=== PATIENT | male | born 1935 | race Caucasian/White ===

== ENCOUNTER 2016-11-10 12:13 | Inpatient (IN) ==
[2016-11-10] MEDS ORDERED: SODIUM BICARBONATE 2.4 MEQ/5 ML VIAL ONE (12:20)
[2016-11-10] MEDS ORDERED: MIDAZOLAM 2 MG/2 ML VIAL ONE ×2 (12:44→13:23)
[2016-11-10] MEDS ORDERED: fentaNYL 100 MCG/2 ML VIAL ONE ×2 (12:44→13:23)
[2016-11-10] MEDS ORDERED: BIVALIRUDIN 250 MG VIAL IV ONE (12:49)
[2016-11-10] MEDS ORDERED: HEPARIN/NACL 0.9% 2 UNITS/ML 500 ML IV ONE (13:16)
[2016-11-10] MEDS ORDERED: HEPARIN/NACL 0.9% 2 UNITS/ML 1,000 ML IV ONE (13:44)
[2016-11-10] MEDS ORDERED: LIDOCAINE 1% 20 ML VIAL ONE (13:44)
[2016-11-10] MEDS ORDERED: TICAGRELOR 90 MG TABLET ONE (14:07)
[2016-11-10] MEDS ORDERED: ACETAMINOPHEN 325 MG TABLET PO PRN (14:32)
[2016-11-10] MEDS ORDERED: ACETAMINOPHEN/CODEINE 300-30 MG TABLET PO PRN (14:32)
[2016-11-10] MEDS ORDERED: ZALEPLON 5 MG CAPSULE PO PRN (14:32)
[2016-11-10] MEDS ORDERED: ONDANSETRON 4 MG/2 ML VIAL IV PRN (14:32)
[2016-11-10] MEDS ORDERED: SODIUM CHLORIDE 0.45% 1,000 ML IV SCH (15:00)
--- NOTE | 2016-11-10 15:08 | EKG Report ---
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
[2016-11-10 15:16] LABS: Basophils % 0.5 % (0.0-0.8); Eosinophils # 0.3 10*3/uL (0.0-0.87); Eosinophils % 4.1 % (0.00-10.9); Hematocrit 40.1 VOL% (42.0-52.0); Hemoglobin 14.1 GM/DL (14.0-18.0); Immature Granulocytes % 0.5 %; Immature Granulocytes Absolute 0.04 #; Lymphocytes # 0.9 10*3/uL (1.4-4.0); Lymphocytes % 10.7 % (21.2-54.2); Mean Corpuscular HGB Conc 35.2 GM/DL (32-36); Mean Corpuscular Hemoglobin 32 PG (27-34); Mean Corpuscular Volume 90.9 FL (87-102); Mean Platelet Volume 9.6 FL (9.6-12.0); Monocytes # 0.4 10*3/uL (0.11-0.8); Monocytes % 5.5 % (1.7-12.7); Neutrophils # 6.3 10*3/uL (1.4-7.4); Neutrophils % 78.7 % (38.7-73.9); Platelet Count 124 T/CUMM (130-400); Red Blood Count 4.41 MC/CUMM (3.8-5.5); Red Cell Distribution Width 12.5 % (9.3-17.3)
[2016-11-10] MEDS: MORPHINE 2 MG/1 ML SYRINGE IV PRN ×2 (15:30→18:45)
[2016-11-10] MEDS ORDERED: ALUMINUM/MAGNES/SIMETH MAX STR 30 ML UDCUP PO PRN (15:41)
[2016-11-10 15:43] LABS: Calcium 8.1 MG/DL (8.5-10.1); Osmolality,Calculated 280.5 MOS/KG (273-304); Potassium 4.2 MMOL/L (3.5-5.1)
[2016-11-10 15:45] LABS: CKMB % 8.2 %
[2016-11-10 15:50] LABS: Troponin I Only 4.65 NG/ML (0.00-0.045)
--- NOTE | 2016-11-10 15:54 | Cardiology History & Physical ---
Assessment and Plan (1) Acute lateral myocardial infarction Status: Acute Current Visit: Yes (2) Coronary artery disease Status: Chronic Current Visit: Yes (3) Hypertension Status: Chronic Current Visit: Yes (4) Hyperlipidemia Status: Chronic Current Visit: Yes History of Present Illness Chief complaint: epigastric pain History of present illness: Central Lab Technician: Dr. Cárdenas. Mr. Whitfield is a 81 year old male with a history of coronary artery bypass grafting in approximately 1995 (EVANS to LAD, SVG to D1, SVG to RCA), followed by PCI of an intermediate ramus vessel shortly thereafter. He has not had any recent heart catheterization. Comorbidities include hypertension, hyperlipidemia. He has a history of colon cancer diagnosed 2005 status post resection and felt to be in remission. He was brought to the hospital as an activated STEMI from [facility]. He awoke at approximately 8 AM with some epigastric discomfort. He has some chronic constipation issues related to his colonic resection and he thinks that these may be related. He did not really have any associated symptoms, no clear triggers or alleviators. He denied any chest pain, shortness of breath, orthopnea, edema. He had no antecedent exertional chest discomfort or change in his exercise tolerance. He has good medication and dietary compliance. Of note, on chart review he complained of epigastric discomfort prior to the PCI of his ramus. He was brought directly to the Application Packaging Consultant and interviewed on the Application Packaging Consultant table preoperatively and intraoperatively. His chart was reviewed preoperatively, at least what was available in the computer. The staff continue to search for additional information during the procedure. The supplemental information was applied to decision-making as described below. Initially he was unsure about proceeding with cardiac catheterization but eventually agreed to proceed given the information about his condition that I provided. Please see the operative report for full details. The patient has complex anatomy which included 3 patent grafts, but 100% occluded mid LAD distal to the graft insertion, 95% ramus (or obtuse marginal artery) proximal to the previously placed stent, and suspected 100% occlusion of the circumflex proper. It was suspected that the circumflex occlusion was likely the culprit vessel. the circumflex was faintly identified with some ghost filling through some very distal collaterals. The origin of this vessel could not be identified readily. I attempted to search the patent vessel and attempts to enter the circumflex, and overall these attempts were unsuccessful and we could never enter the circumflex vessel. Initially chronicity of the LAD was unknown, and the wire was inserted to the LAD in an attempt to open up the LAD. However, intraoperatively we were able to obtain some prior cath reports describing this vessel is occluded after the graft insertion with a failed previous attempt at PCI to this vessel. Additionally, the apex appeared to be akinetic and this again was felt to be a chronic occlusion. The patient did have persistent threats to further occlusion of the lateral territory through the ramus or marginal branch, therefore PCI of this vessel was performed. Of note, the patient was recently seen in the emergency room for Dysfunction of his right thumb and first finger. He was unable to use these fingers acutely and eventually saw his primary care physician and neurologist for concerns of stroke. He has recovered some function in his fingers at this point. Impression: 1. Acute lateral ST elevation myocardial infarction-please see op report for full details. The failed attempt at PCI of the circumflex and LAD, but successful PCI of the lateral (marginal or ramus) disease branch was performed. The patient was treated acutely with Angiomax, has also been initiated on dual antiplatelet therapy. Beta-blockers and statin will also be administered. There is a note of a history of bradycardia in his chart so he may not be able to continue with the beta-liss but we will monitor his heart rate during his hospital stay. 2. Ischemic cardiomyopathy-the patient is currently not in heart failure but we will monitor for any side effects during his hospital stay. He may need to be considered for device therapy. 3. Possible recent stroke-he was seen by Dr. Castro for this. 4. Hypertension-chronic, stable. 5. Hyperlipidemia-chronic, stable. Home Medications Medication Instructions Recorded Confirmed Type Aspirin EC Tab 325 mg PO QAM 09/11/16 09/11/16 History Simvastatin [Simvastatin] 40 mg PO QPM 09/11/16 09/11/16 History Clopidogrel [Plavix] 75 mg PO DAILY 11/10/16 11/10/16 History Lisinopril/Hctz 20-12.5 [Prinzide 1 tablet PO DAILY 11/10/16 11/10/16 History 20-12.5] NIFEdipine XL TAB [Procardia Xl] 30 mg PO DAILY 11/10/16 11/10/16 History Allergies Allergy/AdvReac Type Severity Reaction Status Date / Time No Known Allergies Allergy Verified 09/11/16 10:56 12 point system: reviewed and no additional remarkable complaints except as stated Medical,Surgical,& Family Hx - Medical History Cardio: History of: CAD, Hypertension HEENT: History of: Glaucoma Endocrine: History of: Dyslipidemia Respiratory: No history of: Respiratory Problems Genitourinary: History of: Kidney Stones (history of kidney stones greater than 15 years ago) Gastrointestinal: History of: Gastrointestinal Cancer (COLON CANCER) Musculoskeletal: No history of: Amputation Other: History of: Cancer (colon cancer, skin cancer) - Surgical History Cardiac Surgeries: Sugical HX of: Cardiac Catheterization (about 20 years ago), Cardiac Surgery (CABG 1995) Thoracic Surgeries: Surgical HX of;: Lithotripsy Patient denies;: Organ Transplant, Lobectomy Neurologic Surgeries: Patient denies: Neurologic Surgery HEENT Surgeries: Surgical HX of: Eye Surgery Patient denies: Thyroid Surgery, Tonsilectomy & Adenoidectomy Abdominal Surgeries: Surgical HX of: Abdominal Surgery (colon resection 10 years ago) Reproductive Surgeries: Surgical HX of;: Genitourinary Surgery Orthopedic Surgeries: Patient denies;: Implanted Devices, Orthopedic Surgery, Spinal Surgery, Total Hip Replacement, Total Knee Replacement - Family History Family History: Reports;: Family Cancer, Family Heart Disease (brother) - Social History Smoking Status: Never smoker Frequency of Alcohol Use: Occasionally Type of Drug Use: None Marital Status: Lives With:: Alone Functional capacity: independent ambulation Cardiology Physical Exam - Constitutional Vitals: Intake and Output 11/09/16 11/10/16 11/10/16 23:59 07:59 15:59 Other: Weight 81.193 kg Patient Weight 11/10/16 23:59 Weight 81.193 kg Exam: General appearance: normal weight, no acute distress - Head Head exam: Present: normal inspection, normocephalic, atraumatic. Absent: hematoma, laceration - Eye Eye exam: Present: EOMI. Absent: conjunctival injection, nystagmus, periorbital swelling, scleral icterus, laceration to eyelids Pupils: Present: PERRL. Absent: constricted, dilated, fixed, irregular, unequal - ENT ENT exam: Present: normal exam, normal external ear exam - Neck Neck exam: Present: normal inspection. Absent: lymphadenopathy, meningismus, tenderness, thyromegaly - Respiratory Respiratory exam: Present: clear to auscultation bilaterally. Absent: accessory muscle use, chest wall tenderness - Cardiovascular Cardiovascular exam: Present: regular rate and rhythm. Absent: carotid bruit, gallop, JVD, rubs - GI/Abdominal GI/Abdominal exam: Present: normal bowel sounds, soft. Absent: distended, firm , guarding, hernia, mass, tenderness, rebound. - Extremities Exam Extremities exam: Present: normal inspection, normal capillary refill. Absent: calf tenderness, edema - Back Exam Back exam: Present: normal inspection. Absent: muscle spasm, vertebral tenderness - Neurological Exam Neurological exam: Present: alert, oriented X3, grossly intact without resting or intention tremor - Psychiatric Psychiatric exam: Present: normal affect, normal mood - Skin Skin exam: Present: normal color, warm, dry, intact. Absent: cyanosis, diaphoretic, rash, urticaria Result/EKG - Labs CBC & BMP: 11/10/16 15:00 Lab Results: I have reviewed the past 24 hour labs Labs: Laboratory Results - last 24 hr 11/10/16 15:00 WBC 8.0 RBC 4.41 Hgb 14.1 Hct 40.1 L MCV 90.9 MCH 32 MCHC 35.2 RDW 12.5 Plt Count 124 L MPV 9.6 Neut % (Auto) 78.7 H Lymph % (Auto) 10.7 L [place] % (Auto) 5.5 Eos % (Auto) 4.1 Baso % (Auto) 0.5 Neut # (Auto) 6.3 Lymph # (Auto) 0.9 L [place] # (Auto) 0.4 Eos # (Auto) 0.3 Baso # (Auto) 0.0 Immature Gran % 0.5 Nucleated RBC % 0.0 Immature Gran # 0.04 Nucleated RBCs # 0.00 - EKG EKG results: interpreted by me, sinus rhythm (ST elevation in leads V3 through V5)
--- NOTE | 2016-11-10 16:00 | Cardiology Operative Report ---
Date of Procedure:: 11/10/16 Pre-op diagnosis: Acute lateral ST elevation myocardial infarction Post-op diagnosis: other (Severe three-vessel coronary artery disease as described below) Procedure: 1. Selective left and right coronary angiography. 2. Left heart catheterization with left ventriculogram. 3. Selective vein graft angiography 2 4. Selective left internal mammary artery bypass graft angiography. 5. Percutaneous intervention of the proximal obtuse marginal artery with placement of synergy 3 x 12 mm drug-eluting stent. 6. Failed attempted PCI of the circumflex artery (due to inability to locate and enter the vessel origin). 7. Failed attempted PCI of the mid LAD (intraoperatively determined to be a chronic occlusion). 8. Right iliac angiography to rule out vascular complications. 9. Delayed time to balloon angioplasty due to technical difficulties with the diagnostic portion of the procedure (difficulty engaging the EVANS), as well as difficulty identifying the culprit vessel. Impression: 1. Severe three-vessel coronary artery disease. A. Circumflex artery 100% occluded at its ostium (barely visualized through distal collateralization). B. Diffuse disease of the LAD with 100% occlusion in the mid segment distal to the EVANS graft insertion. C. Proximal obtuse marginal artery 95% stenosis. D. Moderate residual Disease of the right coronary artery. E. Patent EVANS to LAD. F. Patent SVG to first diagonal artery. G. Patent SVG to RCA. 2. Right dominant coronary arteries. 3. Ejection fraction 30% with akinesis of the apex and adjacent distal anterior and inferior alejandra. 4. Angiographically normal right iliac artery without evidence of vascular complications. 5. Successful PCI of the proximal obtuse marginal artery as described above. 6. Failed attempted PCI to the circumflex and LAD arteries as described above. Plan: 1. DAPT > 12 months. 2. Consideration of defibrillator placement. Equipment: Diagnostic 6 Haitian JL4, JR4, pigtail catheters, 4 Haitian internal mammary artery catheter Guiding 6 Haitian EBU 4.0 catheter, 180cm Voxwarewater wire 2, apex 2.5 x 12 mm balloon, synergy 3 x 12 mm drug-eluting stent, apex 3 x 8 mm non-compliant balloon Hemodynamics: Aortic pressure 174/74 mmHg, left ventricular pressure 156/11 mmHg, LVEDP 31 mmHg Sedation: Versed 4 mg, fentanyl 150 mcg Procedure: After informed consent was obtained verbally from the patient to due to the emergent nature of this procedure, the patient was prepped and draped in sterile fashion. The right groin was infiltrated with 1% lidocaine and the right femoral artery was accessed via modified Seldinger technique using a micropuncture needle and a 6 Haitian femoral arterial sheath was placed. All catheter exchanges were performed over a guidewire under fluoroscopic guidance. Diagnostic 6 Haitian JL4 and JR4 catheters were advanced to the left and right coronary arteries respectively and multiple cineangiograms were performed in varying degrees of obliquity and angulation. The JR4 catheter was then withdrawn and used to cannulate the saphenous vein graft to the first diagonal artery, and angiography of this vessel was performed. The catheter was withdrawn and advanced into the left subclavian artery but would not successfully engage the left internal mammary artery due to tortuosity of the subclavian artery. A guidewire was used to reposition the catheter a couple of times, but overall attempts at cannulating the EVANS were unsuccessful, and nonselective angiography was inadequate. This was exchanged for a diagnostic 4 Haitian internal mammary catheter which was used to successfully engage the EVANS , and angiography of this bypass graft was performed. Thereafter a pigtail catheter was advanced into the left ventricle where hemodynamics were obtained followed by left ventriculogram (in an attempt to identify wall motion in the LAD territory and evaluate the chronicity of the LAD occlusion). The JR4 catheter was then reintroduced into the aortic root and used to cannulate saphenous vein graft to the right coronary artery, and multiple cineangiograms were performed a very degrees of lateral angulation. Percutaneous intevention of the obtuse marginal artery was then performed as described below. At conclusion of the procedure right iliac angiography was performed to rule out vascular complications. Findings: 1. The left main artery is angiographically normal. 2. The left anterior descending artery is diffusely diseased in the proximal to mid segment with up to 100% occlusion after the first diagonal origin. When visualized through the EVANS graft, a second segment of 100% occlusion is noted after graft insertion and just after the second diagonal artery. 3. There is not an intermediate ramus branch. 4. The circumflex artery is suspected to be 100% occluded. A large marginal artery is suspected to be a high first obtuse marginal artery, although this could also represent an intermediate ramus vessel. In general the circumflex artery is not well identified, but is suspected to be seen filling with very distal left to left collateralization. The origin of this vessel from the [place] trunk was not readily identified. 5. The right coronary artery has mild to moderate atheromatous disease, with 40 % stenosis in the proximal mid segment, and 60% stenosis in the distal segment prior to the bifurcation. It is dominant. 6. Saphenous vein graft to the right coronary artery is patent, although mildly to moderately atretic. 7. Saphenous vein graft to first diagonal artery is patent. 8. EVANS to LAD graft is patent, although the [place] vessels 100% occluded just after graft insertion. 9. Ejection fraction is 30-35% with akinesis of the apex and adjacent distal anterior and distal inferior wall. 10. No significant aortic stenosis. 11. No significant mitral regurgitation. 12. The right iliac artery has mild atherosclerotic vascular disease but is without evidence of vascular complications. PCI: The patient was anticoagulated with Angiomax. After appropriate anticoagulation was confirmed with an ACT measurement, a guiding 6 Haitian EBU 3.5 catheter was advanced to the left main artery but would not readily engage the artery. This was then exchanged for a 6 Haitian EBU 4.0 guiding catheter which was used to intubate the left main artery.. A Prowater 180 cm wire was used to traverse the lateral (suspected obtuse marginal artery or ramus) artery. A second pro-water 180 cm wire was introduced into the left coronary artery, and multiple attempts were made to search the left main and marginal trunks to enter the occluded circumflex artery. However, despite multiple attempts the origin of this vessel could not be determined and was not successfully entered. The wire was redirected into the left anterior descending artery, but would not advance through the 100% stenosis in the midportion of the vessel. Intraoperatively we were able to obtain prior heart catheterization records and it became evident that this was a chronic lesion, so further attempts at entering this vessel were aborted. The wire again was withdrawn, redirected into the marginal branch, and again could not successfully identify or enter the circumflex artery. The second wire was then withdrawn. Over the initially placed pro-water wire in the marginal branch, a apex 2.5 x 12 mm balloon was advanced to the site of stenosis and angioplasty was performed at 10 jefferson. Thereafter, a synergy 3 x 12 mm drug-eluting stent was advanced to the site of angioplasty, and successfully deployed at 11 jefferson. Afterwards, a non-compliant apex 3 x 8 mm balloon was advanced into the stented segment and post-dilation was performed at 20 jefferson. Satisfactory angiographic result was obtained with appropriate step-up proximally and distally, and no evidence of residual vascular complications. LAD lesion characteristics: Preoperatively and postoperatively there is 100% occlusion with KELLEE 0 flow. Circumflex lesion characteristics: Preoperatively and postoperatively there is 100% occlusion with KELLEE 0 flow. Marginal artery lesion characteristics: Preoperatively there is 90% stenosis with KELLEE-3 flow, postoperatively there is 0% residual stenosis with KELLEE-3 flow. Contrast use: 324 cc Fluoro time: 25.9 minutes Complications: none Specimens removed: none Devices implanted: stent as described above Anesthesia: moderate conscious sedation Surgeon / Physician: Alice Stark Supervisor Treating And Pumping: none (Benny Hui) Estimated blood loss: minimal Specimens: none sent Condition: stable Disposition: ICU/CCU
[2016-11-10 17:55] LABS: Alanine Aminotransferase 19 U/L (16-61); Albumin 3.3 G/DL (3.4-5.0); Alkaline Phosphatase 71 U/L (45-117); Amylase 27 U/L (25-115); Aspartate Amino Transferase 47 U/L (0-37); Bilirubin,Direct < 0.10 MG/DL (0.0-0.20); Bilirubin,Indirect 0.3 MG/DL (0.0-1.0); Total Protein 6.1 G/DL (6.4-8.3)
--- NOTE | 2016-11-10 18:29 | XRay Report ---
XR KUB Indication: Abdominal pain. Comparison: None. Technique: Supine AP image of the abdomen was obtained. Findings: Lung bases are clear. There is no evidence of organomegaly. Bowel gas pattern is nonspecific. Moderate amount stool is present in the region of the hepatic flexure. Renal contours are bilaterally symmetric. Bones and soft tissues demonstrate no significant abnormalities. The urinary bladder is filled with contrast. Impression: 1. No active process is demonstrated within the abdomen or pelvis. Contrast fills the urinary bladder. 11/10/2016 6:25 PM PROCEDURE INTERPRETED AT [facility] DEPARTMENT OF RADIOLOGY Final Report Signed by: Dr. Jesus Rdz
[2016-11-10] MEDS: POLYETHYLENE GLYCOL POWDER 17 GM PACK PO PRN (18:30)
[2016-11-10] MEDS: METOPROLOL TARTRATE 25 MG TABLET PO SCH (20:49)
[2016-11-10] MEDS: TICAGRELOR 90 MG TABLET PO SCH (20:49)
[2016-11-10] MEDS: ATORVASTATIN 40 MG TABLET PO SCH (20:49)
[2016-11-10 23:54] LABS: CKMB % 10.1 %
[2016-11-10 23:56] LABS: Troponin I Only 25.8 NG/ML (0.00-0.045)
[2016-11-11 05:58] LABS: Basophils % 0.6 % (0.0-0.8); Eosinophils % 5.9 % (0.00-10.9); Immature Granulocytes % 0.3 %; Lymphocytes % 14.4 % (21.2-54.2); Mean Corpuscular Hemoglobin 31 PG (27-34); Mean Corpuscular Volume 89.5 FL (87-102); Mean Platelet Volume 9.6 FL (9.6-12.0); Monocytes % 8.3 % (1.7-12.7); Neutrophils % 70.5 % (38.7-73.9); Platelet Count 135 T/CUMM (130-400); Red Blood Count 4.47 MC/CUMM (3.8-5.5); Red Cell Distribution Width 12.5 % (9.3-17.3)
[2016-11-11 05:59] LABS: Basophils # 0.1 10*3/uL (0.0-0.2); Eosinophils # 0.5 10*3/uL (0.0-0.87); Immature Granulocytes Absolute 0.03 #; Lymphocytes # 1.3 10*3/uL (1.4-4.0); Monocytes # 0.8 10*3/uL (0.11-0.8); Neutrophils # 6.3 10*3/uL (1.4-7.4)
[2016-11-11 06:55] LABS: Calcium 8.4 MG/DL (8.5-10.1); Osmolality,Calculated 279.4 MOS/KG (273-304); Potassium 4.1 MMOL/L (3.5-5.1); Risk Ratio 2.8; VLDL CHOLESTEROL 29.8 MG/DL
--- NOTE | 2016-11-11 07:24 | Cardiology Progress Note ---
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 NOONAN Mr. Whitfield, 81WM, history of known coronary artery disease status post coronary artery bypass grafting in 1995 (EVANS to LAD, SVG to D1, SVG RCA), followed by PCI of an immediate ramus vessel shortly thereafter. History of hypertension, hyperlipidemia, colon cancer diagnosed 2004 status post resection and felt to be in remission. He was brought to the [facility] November 10, 2016 as an activated STEMI from [facility]. He was taken emergently to the cardiac catheterization lab with the following was noted: Impression: 1. Severe three-vessel coronary artery disease. A. Circumflex artery 100% occluded at its ostium (barely visualized through distal collateralization). B. Diffuse disease of the LAD with 100% occlusion in the mid segment distal to the EVANS graft insertion. C. Proximal obtuse marginal artery 95% stenosis. D. Moderate residual Disease of the right coronary artery. E. Patent EVANS to LAD. F. Patent SVG to first diagonal artery. G. Patent SVG to RCA. 2. Right dominant coronary arteries. 3. Ejection fraction 30% with akinesis of the apex and adjacent distal anterior and inferior alejandra. 4. Angiographically normal right iliac artery without evidence of vascular complications. 5. Successful PCI of the proximal obtuse marginal artery as described above. 6. Failed attempted PCI to the circumflex and LAD arteries as described above. Plan: 1. DAPT > 12 months. 2. Consideration of defibrillator placement. He tolerated the procedure well without complication. Overnight, he has been housed in our ICU. He denies chest pain, heaviness or tightness. Troponin has increased to 25.8 overnight we are awaiting morning cardiac biomarkers. Currently taking aspirin 81 mg orally daily, Brilinta 90 twice daily. He is on a beta-liss and an MATTIE inhibitor. Continue with his atorvastatin as well. Echocardiogram has been ordered. His primary concern is of constipation. We will address his constipation this afternoon when he is more ambulatory. ASSESSMENT/PLAN: 1. STEMI - status post revascularization 2. KNOWN CAD - continue aspirin, Brilinta, beta liss, MATTIE inhibitor and lipid-lowering agent 3. HYPERTENSION - adequately controlled. 4. DYSLIPIDEMIA - LDL 72. Continue lipid-lowering agent 5. ICM - EF 30%. If eventually, should his cardiomyopathy not improve, he may be a candidate for ICD 6. CONSTIPATION - this afternoon, will administer Fleet's enema per patient request Exam (Progress Note) - Constitutional Vitals: Period Temp Pulse Resp BP Sys/Green Pulse Ox Last 24 Hr 97.4 F-98.7 F 49-67 9-22 135-158/64-98 94-99 Exam: General: [Appears well with no apparent distress.] [Pleasant and cooperative. ] [Appears comfortable.] HEENT: [PERRL, normocephalic, atraumatic. Mucous membranes moist. No jaundice noted. Conjunctiva moist and clear, sclerae anicteric] Neck: No JVD/HJR, no thyromegaly or lymphadenopathy noted. No carotid bruit appreciated Cardiac: [Regular rate and rhythm.] [No obvious murmur, rub or gallop.] Lungs: [Clear to auscultation without accessory muscle use to assist the respiratory pattern.] Not requiring oxygen. Abdomen: Soft, bowel sounds normoactive. Nontender and nondistended. No abdominal bruit or thrill noted. No masses noted. Musculoskeletal: No fluid collection. Decreased range of motion is noted. Extremities: Right groin soft. Dressing dry and intact. No obvious bruising or hematoma noted. No clubbing, cyanosis noted. [ No edema noted.] Upper extremity pulses 2+. Lower extremity pulses 2+. Capillary refill less than 3 seconds. Skin: No unusual lesions or rashes. No skin breakdown appreciated. Neuro: Awake, alert and oriented 3. Moves all extremities well without hemiparesis or paralysis. No essential tremor is appreciated. Result/EKG - Labs CBC & BMP: 11/11/16 05:05 11/11/16 05:05 Lab Results: I have reviewed the past 24 hour labs Labs: Laboratory Results - last 24 hr 11/10/16 11/10/16 11/10/16 15:00 15:00 15:00 WBC 8.0 RBC 4.41 Hgb 14.1 Hct 40.1 L MCV 90.9 MCH 32 MCHC 35.2 RDW 12.5 Plt Count 124 L MPV 9.6 Neut % (Auto) 78.7 H Lymph % (Auto) 10.7 L [place] % (Auto) 5.5 Eos % (Auto) 4.1 Baso % (Auto) 0.5 Neut # (Auto) 6.3 Lymph # (Auto) 0.9 L [place] # (Auto) 0.4 Eos # (Auto) 0.3 Baso # (Auto) 0.0 Immature Gran % 0.5 Nucleated RBC % 0.0 Immature Gran # 0.04 Nucleated RBCs # 0.00 Sodium 139 Potassium 4.2 Chloride 104 Carbon Dioxide 27 Anion Gap 12.2 BUN 17 Creatinine 0.90 GFR Calculation 93 BUN/Creatinine Ratio 18.00 Glucose 130 H Calculated Osmolality 280.5 Calcium 8.1 L Total Bilirubin Direct Bilirubin Indirect Bilirubin AST ALT 18 Alkaline Phosphatase Total Creatine Kinase 324 H CK-MB (CK-2) 26.7 H CK and CKMB Interp 8.2 Troponin I 4.650 H Total Protein Albumin Triglycerides Cholesterol LDL Cholesterol VLDL Cholesterol HDL Cholesterol Heart Disease Risk Ratio Amylase Lipase 11/10/16 11/10/16 11/11/16 15:00 23:16 05:05 WBC 9.0 RBC 4.47 Hgb 14.0 Hct 40.0 L MCV 89.5 MCH 31 MCHC 35.0 RDW 12.5 Plt Count 135 MPV 9.6 Neut % (Auto) 70.5 Lymph % (Auto) 14.4 L [place] % (Auto) 8.3 Eos % (Auto) 5.9 Baso % (Auto) 0.6 Neut # (Auto) 6.3 Lymph # (Auto) 1.3 L [place] # (Auto) 0.8 Eos # (Auto) 0.5 Baso # (Auto) 0.1 Immature Gran % 0.3 Nucleated RBC % 0.0 Immature Gran # 0.03 Nucleated RBCs # 0.00 Sodium Potassium Chloride Carbon Dioxide Anion Gap BUN Creatinine GFR Calculation BUN/Creatinine Ratio Glucose Calculated Osmolality Calcium Total Bilirubin 0.40 Direct Bilirubin < 0.10 Indirect Bilirubin 0.3 AST 47 H ALT 19 Alkaline Phosphatase 71 Total Creatine Kinase 993 H D CK-MB (CK-2) 99.8 H D CK and CKMB Interp 10.1 Troponin I 25.800 H D Total Protein 6.1 L Albumin 3.3 L Triglycerides Cholesterol LDL Cholesterol VLDL Cholesterol HDL Cholesterol Heart Disease Risk Ratio Amylase 27 Lipase 60.0 L 11/11/16 05:05 WBC RBC Hgb Hct MCV MCH MCHC RDW Plt Count MPV Neut % (Auto) Lymph % (Auto) [place] % (Auto) Eos % (Auto) Baso % (Auto) Neut # (Auto) Lymph # (Auto) [place] # (Auto) Eos # (Auto) Baso # (Auto) Immature Gran % Nucleated RBC % Immature Gran # Nucleated RBCs # Sodium 140 Potassium 4.1 Chloride 106 Carbon Dioxide 26 Anion Gap 12.1 BUN 11 Creatinine 0.90 GFR Calculation 93 BUN/Creatinine Ratio 12.00 Glucose 133 H Calculated Osmolality 279.4 Calcium 8.4 L Total Bilirubin Direct Bilirubin Indirect Bilirubin AST ALT Alkaline Phosphatase Total Creatine Kinase CK-MB (CK-2) CK and CKMB Interp Troponin I Total Protein Albumin Triglycerides 149 Cholesterol 140 LDL Cholesterol 72.0 VLDL Cholesterol 29.8 HDL Cholesterol 50 Heart Disease Risk Ratio 2.80 Amylase Lipase - Diagnostic Findings Procedure: Chest x-ray: report reviewed by me - EKG EKG results: interpreted by ri EKG shows: sinus rhythm Specialty Discharge - Follow Up or Referrals <Alice Stark - Last Filed: 11/11/16 09:10> Assessment and Plan (1) Acute lateral myocardial infarction Status: Acute Current Visit: Yes (2) Coronary artery disease Status: Chronic Current Visit: Yes (3) Hypertension Status: Chronic Current Visit: Yes (4) Hyperlipidemia Status: Chronic Current Visit: Yes Cardiology - PN: Subj Interval history: I have personally interviewed and evaluated the patient, reviewed the chart and discussed medical decision-making with Practitioner Blanquita. I have read this note and agree with her documentation here in with the following clarification: He is status post partial revascularization. We will transfer him to the floor today. Symptomatically he is improved and I believe he has completed his infarction. Exam (Progress Note) - Constitutional Vitals: Period Temp Pulse Resp BP Sys/Green Pulse Ox Last 24 Hr 97.4 F-98.7 F 49-67 9-22 135-158/64-98 94-99 Result/EKG - Labs CBC & BMP: 11/11/16 05:05 11/11/16 05:05 Labs: Laboratory Results - last 24 hr 11/10/16 11/10/16 11/10/16 15:00 15:00 15:00 WBC 8.0 RBC 4.41 Hgb 14.1 Hct 40.1 L MCV 90.9 MCH 32 MCHC 35.2 RDW 12.5 Plt Count 124 L MPV 9.6 Neut % (Auto) 78.7 H Lymph % (Auto) 10.7 L [place] % (Auto) 5.5 Eos % (Auto) 4.1 Baso % (Auto) 0.5 Neut # (Auto) 6.3 Lymph # (Auto) 0.9 L [place] # (Auto) 0.4 Eos # (Auto) 0.3 Baso # (Auto) 0.0 Immature Gran % 0.5 Nucleated RBC % 0.0 Immature Gran # 0.04 Nucleated RBCs # 0.00 Sodium 139 Potassium 4.2 Chloride 104 Carbon Dioxide 27 Anion Gap 12.2 BUN 17 Creatinine 0.90 GFR Calculation 93 BUN/Creatinine Ratio 18.00 Glucose 130 H Calculated Osmolality 280.5 Calcium 8.1 L Total Bilirubin Direct Bilirubin Indirect Bilirubin AST ALT 18 Alkaline Phosphatase Total Creatine Kinase 324 H CK-MB (CK-2) 26.7 H CK and CKMB Interp 8.2 Troponin I 4.650 H Total Protein Albumin Triglycerides Cholesterol LDL Cholesterol VLDL Cholesterol HDL Cholesterol Heart Disease Risk Ratio Amylase Lipase 11/10/16 11/10/16 11/11/16 15:00 23:16 05:05 WBC 9.0 RBC 4.47 Hgb 14.0 Hct 40.0 L MCV 89.5 MCH 31 MCHC 35.0 RDW 12.5 Plt Count 135 MPV 9.6 Neut % (Auto) 70.5 Lymph % (Auto) 14.4 L [place] % (Auto) 8.3 Eos % (Auto) 5.9 Baso % (Auto) 0.6 Neut # (Auto) 6.3 Lymph # (Auto) 1.3 L [place] # (Auto) 0.8 Eos # (Auto) 0.5 Baso # (Auto) 0.1 Immature Gran % 0.3 Nucleated RBC % 0.0 Immature Gran # 0.03 Nucleated RBCs # 0.00 Sodium Potassium Chloride Carbon Dioxide Anion Gap BUN Creatinine GFR Calculation BUN/Creatinine Ratio Glucose Calculated Osmolality Calcium Total Bilirubin 0.40 Direct Bilirubin < 0.10 Indirect Bilirubin 0.3 AST 47 H ALT 19 Alkaline Phosphatase 71 Total Creatine Kinase 993 H D CK-MB (CK-2) 99.8 H D CK and CKMB Interp 10.1 Troponin I 25.800 H D Total Protein 6.1 L Albumin 3.3 L Triglycerides Cholesterol LDL Cholesterol VLDL Cholesterol HDL Cholesterol Heart Disease Risk Ratio Amylase 27 Lipase 60.0 L 11/11/16 11/11/16 05:05 08:03 WBC RBC Hgb Hct MCV MCH MCHC RDW Plt Count MPV Neut % (Auto) Lymph % (Auto) [place] % (Auto) Eos % (Auto) Baso % (Auto) Neut # (Auto) Lymph # (Auto) [place] # (Auto) Eos # (Auto) Baso # (Auto) Immature Gran % Nucleated RBC % Immature Gran # Nucleated RBCs # Sodium 140 Potassium 4.1 Chloride 106 Carbon Dioxide 26 Anion Gap 12.1 BUN 11 Creatinine 0.90 GFR Calculation 93 BUN/Creatinine Ratio 12.00 Glucose 133 H Calculated Osmolality 279.4 Calcium 8.4 L Total Bilirubin Direct Bilirubin Indirect Bilirubin AST ALT Alkaline Phosphatase Total Creatine Kinase 1027 H CK-MB (CK-2) 86.9 H D CK and CKMB Interp 8.5 Troponin I 45.800 H D Total Protein Albumin Triglycerides 149 Cholesterol 140 LDL Cholesterol 72.0 VLDL Cholesterol 29.8 HDL Cholesterol 50 Heart Disease Risk Ratio 2.80 Amylase Lipase
[2016-11-11] MEDS ORDERED: SODIUM PHOSPHATE ENEMA 133 ML BOTTLE RECTAL ONE (07:27)
--- NOTE | 2016-11-11 07:51 | EKG Report ---
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
[2016-11-11 08:52] LABS: CKMB % 8.5 %
[2016-11-11] MEDS ORDERED: LISINOPRIL 2.5 MG TABLET PO SCH (09:00)
[2016-11-11 09:09] LABS: Troponin I Only 45.8 NG/ML (0.00-0.045)
[2016-11-11] MEDS ORDERED: LISINOPRIL 10 MG TABLET PO SCH (09:11)
[2016-11-11] MEDS: TICAGRELOR 90 MG TABLET PO SCH ×2 (09:27→22:49)
[2016-11-11] MEDS: POLYETHYLENE GLYCOL POWDER 17 GM PACK PO PRN (09:27)
[2016-11-11] MEDS: PANTOPRAZOLE 40 MG TABLET PO SCH (09:27)
[2016-11-11] MEDS: ASPIRIN EC 81 MG TABLET PO SCH (09:27)
[2016-11-11] MEDS: ENOXAPARIN 40 MG/0.4 ML SYRINGE SUBCUT SCH (09:28)
[2016-11-11] MEDS: METOPROLOL TARTRATE 25 MG TABLET PO SCH ×2 (09:28→22:48)
[2016-11-11] MEDS: LISINOPRIL 10 MG TABLET PO SCH (09:37)
[2016-11-11 16:30] LABS: Troponin I Only 27.5 NG/ML (0.00-0.045)
[2016-11-11] MEDS: ATORVASTATIN 40 MG TABLET PO SCH (22:47)
[2016-11-12] MEDS ORDERED: AMIODARONE INJ 450 MG in DEXTROSE 5% 241 ML IV SCH ×2 (01:00→07:00)
[2016-11-12 06:15] LABS: Basophils # 0.1 10*3/uL (0.0-0.2); Basophils % 0.7 % (0.0-0.8); Eosinophils # 0.6 10*3/uL (0.0-0.87); Eosinophils % 7.3 % (0.00-10.9); Hematocrit 38.7 VOL% (42.0-52.0); Hemoglobin 13.5 GM/DL (14.0-18.0); Immature Granulocytes % 0.3 %; Immature Granulocytes Absolute 0.02 #; Lymphocytes # 1.5 10*3/uL (1.4-4.0); Lymphocytes % 20.2 % (21.2-54.2); Mean Corpuscular HGB Conc 34.9 GM/DL (32-36); Mean Corpuscular Hemoglobin 31 PG (27-34); Mean Corpuscular Volume 89.8 FL (87-102); Mean Platelet Volume 10.1 FL (9.6-12.0); Monocytes # 0.8 10*3/uL (0.11-0.8); Neutrophils # 4.6 10*3/uL (1.4-7.4); Neutrophils % 60.5 % (38.7-73.9); Platelet Count 132 T/CUMM (130-400); Red Blood Count 4.31 MC/CUMM (3.8-5.5); Red Cell Distribution Width 12.8 % (9.3-17.3); White Blood Count 7.6 T/CUMM (4-12)
--- NOTE | 2016-11-12 06:26 | EKG Report ---
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
[2016-11-12 06:37] LABS: Band Neutrophils 1 % (0-10); Calcium 8.6 MG/DL (8.5-10.1); Eosinophils 8 % (0-10); Hypochromasia 1+; Lymphocytes 18 % (20-55); Potassium 4.2 MMOL/L (3.5-5.1); Segmented Neutrophils 63 % (50-85); Total Cells Counted 100
[2016-11-12 06:38] LABS: Platelet Estimate Adequate
--- NOTE | 2016-11-12 07:31 | EKG Report ---
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
[2016-11-12] MEDS: PANTOPRAZOLE 40 MG TABLET PO SCH (09:28)
[2016-11-12] MEDS: ENOXAPARIN 40 MG/0.4 ML SYRINGE SUBCUT SCH (09:28)
[2016-11-12] MEDS: ASPIRIN EC 81 MG TABLET PO SCH (09:28)
[2016-11-12] MEDS: LISINOPRIL 10 MG TABLET PO SCH (09:28)
[2016-11-12] MEDS: TICAGRELOR 90 MG TABLET PO SCH ×2 (09:29→20:48)
[2016-11-12] MEDS: METOPROLOL TARTRATE 25 MG TABLET PO SCH ×2 (09:29→20:48)
--- NOTE | 2016-11-12 15:43 | Cardiology Progress Note ---
<Jennifer Lehman E - Last Filed: 11/12/16 16:26> Assessment and Plan - Time spent with patient Time spent with patient: Less than 30 minutes (1) STEMI (ST elevation myocardial infarction) Status: Resolved Assessment and plan: SEE PLAN OF CARE LISTED BELOW. Current Visit: Yes (2) Coronary artery disease Status: Chronic Assessment and plan: SEE PLAN OF CARE LISTED BELOW. 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 Current Visit: Yes (4) Hyperlipidemia Status: Chronic Assessment and plan: SEE PLAN OF CARE LISTED BELOW. Current Visit: Yes (5) Hypertension Status: Chronic Assessment and plan: SEE PLAN OF CARE LISTED BELOW. Current Visit: Yes (6) Ischemic cardiomyopathy Status: Acute Assessment and plan: SEE PLAN OF CARE LISTED BELOW. Current Visit: Yes (7) Constipation Status: Acute Assessment and plan: SEE PLAN OF CARE LISTED BELOW. Current Visit: Yes (8) Atrial fibrillation with rapid ventricular response Status: Acute Assessment and plan: SEE PLAN OF CARE LISTED BELOW. Current Visit: Yes Cardiology - PN: Subj Interval history: HUMAN RESOURCES OFFICE ASSISTANT: DR. NOONAN Mr. Whitfield, 81WM, history of known coronary artery disease status post coronary artery bypass grafting in 1995 (EVANS to LAD, SVG to D1, SVG RCA), followed by PCI of an immediate ramus vessel shortly thereafter. History of hypertension, hyperlipidemia, colon cancer diagnosed 2004 status post resection and felt to be in remission. He was brought to the [facility] [place] November 10, 2016 as an activated STEMI from [facility]. He was taken emergently to the cardiac catheterization lab with the following was noted: Impression: 1. Severe three-vessel coronary artery disease. A. Circumflex artery 100% occluded at its ostium (barely visualized through distal collateralization). B. Diffuse disease of the LAD with 100% occlusion in the mid segment distal to the EVANS graft insertion. C. Proximal obtuse marginal artery 95% stenosis. D. Moderate residual Disease of the right coronary artery. E. Patent EVANS to LAD. F. Patent SVG to first diagonal artery. G. Patent SVG to RCA. 2. Right dominant coronary arteries. 3. Ejection fraction 30% with akinesis of the apex and adjacent distal anterior and inferior alejandra. 4. Angiographically normal right iliac artery without evidence of vascular complications. 5. Successful PCI of the proximal obtuse marginal artery as described above. 6. Failed attempted PCI to the circumflex and LAD arteries as described above. He tolerated the procedure well without complication. He was housed overnight in ICU and transferred to the floor yesterday. He denies chest pain, heaviness or tightness. Troponin peak was 45.8 and has trended down appropriately. Currently taking aspirin 81 mg orally daily, Brilinta 90 twice daily. He is on a beta-liss and an MATTIE inhibitor. Continue with his atorvastatin as well. Last night he went into atrial fibrillation with rapid ventricular response. He was subsequently started on IV amiodarone and has since converted to normal sinus rhythm. We will transition him to PO amiodarone tonight. ASSESSMENT/PLAN: 1. STEMI - status post partial revascularization 2. KNOWN CAD - continue aspirin, Brilinta, beta liss, MATTIE inhibitor and lipid-lowering agent 3. S/P CABG - DONE 1995 (EVANS to LAD, SVG to D1, SVG to RCA), followed by PCI of an intermediate ramus vessel shortly thereafter. 4. HYPERTENSION - adequately controlled. 5. DYSLIPIDEMIA - LDL 72. Continue lipid-lowering agent 6. ICM - EF 30%. If eventually, should his cardiomyopathy not improve, he may be a candidate for ICD 7. CONSTIPATION - has had bowel movement today. 8. ATRIAL FIBRILLATION W/ RVR - IV amiodarone infusing. Patient has converted to normal sinus rhythm. Will transition to PO amiodarone today. Will further discuss chronic anticoagulation with Dr. Stark. Exam (Progress Note) - Constitutional Vitals: Period Temp Pulse Resp BP Sys/Green Pulse Ox Last 24 Hr 97.2 F-99.7 F 58-75 16-20 96-120/57-70 93-95 Exam: General: [Appears well with no apparent distress.] [Pleasant and cooperative. ] [Appears comfortable.] HEENT: [PERRL, normocephalic, atraumatic. Mucous membranes moist. No jaundice noted. Conjunctiva moist and clear, sclerae anicteric] Neck: No JVD/HJR, no thyromegaly or lymphadenopathy noted. No carotid bruit appreciated Cardiac: [Regular rate and rhythm.] [No obvious murmur, rub or gallop.] Lungs: [Clear to auscultation without accessory muscle use to assist the respiratory pattern.] Not requiring oxygen. Abdomen: Soft, bowel sounds normoactive. Nontender and nondistended. No abdominal bruit or thrill noted. No masses noted. Musculoskeletal: No fluid collection. Decreased range of motion is noted. Extremities: Right groin soft. Dressing dry and intact. No obvious bruising or hematoma noted. No clubbing, cyanosis noted. [ No edema noted.] Upper extremity pulses 2+. Lower extremity pulses 2+. Capillary refill less than 3 seconds. Skin: No unusual lesions or rashes. No skin breakdown appreciated. Neuro: Awake, alert and oriented 3. Moves all extremities well without hemiparesis or paralysis. No essential tremor is appreciated. Result/EKG - Labs CBC & BMP: 11/12/16 05:01 11/12/16 05:01 Lab Results: I have reviewed the past 24 hour labs Labs: Laboratory Results - last 24 hr 11/11/16 11/12/16 11/12/16 15:34 05:01 05:01 WBC 7.6 RBC 4.31 Hgb 13.5 L Hct 38.7 L MCV 89.8 MCH 31 MCHC 34.9 RDW 12.8 Plt Count 132 MPV 10.1 Neut % (Auto) 60.5 Lymph % (Auto) 20.2 L [place] % (Auto) 11.0 Eos % (Auto) 7.3 Baso % (Auto) 0.7 Neut # (Auto) 4.6 Lymph # (Auto) 1.5 [place] # (Auto) 0.8 Eos # (Auto) 0.6 Baso # (Auto) 0.1 Total Counted 100 Immature Gran % 0.3 Nucleated RBC % 0.0 Immature Gran # 0.02 Segmented Neutrophils 63 Band Neutrophils 1 Lymphocytes 18 L Monocytes 9 Eosinophils 8 Basophils 1.0 H Nucleated RBCs # 0.00 Platelet Estimate Adequate Hypochromasia 1+ Sodium 143 Potassium 4.2 Chloride 109 H Carbon Dioxide 23 Anion Gap 15.2 H BUN 12 Creatinine 1.00 GFR Calculation 82 BUN/Creatinine Ratio 12.00 Glucose 118 H Calculated Osmolality 285.0 Calcium 8.6 Total Creatine Kinase 720 H D CK-MB (CK-2) 43.4 H D CK and CKMB Interp 6.0 Troponin I 27.500 H D - EKG EKG results: interpreted by me, sinus rhythm Specialty Discharge - Follow Up or Referrals <Alice Stark - Last Filed: 11/12/16 21:47> Assessment and Plan (1) Acute lateral myocardial infarction Status: Acute Current Visit: Yes (2) Coronary artery disease Status: Chronic Current Visit: Yes (3) Hypertension Status: Chronic Current Visit: Yes (4) Hyperlipidemia Status: Chronic Current Visit: Yes Cardiology - PN: Subj Interval history: Jennifer agree. Overall the patient is doing well clinically. We will monitor his rhythm and if he has repeated atrial fibrillation episodes we may need to consider anticoagulation. We can likely discharge him with a 30 day event monitor to further evaluate this. Exam (Progress Note) - Constitutional Vitals: Period Temp Pulse Resp BP Sys/Green Pulse Ox Last 24 Hr 97.2 F-99.7 F 64-75 18-20 96-114/57-70 93-97 Result/EKG - Labs CBC & BMP: 11/12/16 05:01 11/12/16 05:01 Labs: Laboratory Results - last 24 hr 11/12/16 11/12/16 05:01 05:01 WBC 7.6 RBC 4.31 Hgb 13.5 L Hct 38.7 L MCV 89.8 MCH 31 MCHC 34.9 RDW 12.8 Plt Count 132 MPV 10.1 Neut % (Auto) 60.5 Lymph % (Auto) 20.2 L [place] % (Auto) 11.0 Eos % (Auto) 7.3 Baso % (Auto) 0.7 Neut # (Auto) 4.6 Lymph # (Auto) 1.5 [place] # (Auto) 0.8 Eos # (Auto) 0.6 Baso # (Auto) 0.1 Total Counted 100 Immature Gran % 0.3 Nucleated RBC % 0.0 Immature Gran # 0.02 Segmented Neutrophils 63 Band Neutrophils 1 Lymphocytes 18 L Monocytes 9 Eosinophils 8 Basophils 1.0 H Nucleated RBCs # 0.00 Platelet Estimate Adequate Hypochromasia 1+ Sodium 143 Potassium 4.2 Chloride 109 H Carbon Dioxide 23 Anion Gap 15.2 H BUN 12 Creatinine 1.00 GFR Calculation 82 BUN/Creatinine Ratio 12.00 Glucose 118 H Calculated Osmolality 285.0 Calcium 8.6
--- NOTE | 2016-11-12 19:29 | ECHO Report ---
Vazquez Whitfield Exam Date: 11/11/2016 11:22 Referring Physician: Technologist: Marychuy Vallecillo Age: 81 Ht (in): 70 Wt (lb): 160 Gender: M Exam Location: [facility] Echo Indications: acute lateral [place], CAD prev. CABG, HTN, hyperlipidemia BP: 144 / 69 HR: Rhythm: Sinus Technical Quality: Fair IMPRESSIONS Normal LV systolic function with regional wall motion as described below, ejection fraction 60%. Grade 1/4 diastolic dysfunction. Moderate concentric left ventricular hypertrophy. Moderate left atrial enlargement. Mild mitral, aortic, tricuspid and pulmonic regurgitation. Mitral and aortic sclerosis without significant stenosis. MEASUREMENTS (Male / Female) Normal Values 2D ECHO LV Diastolic Diameter PLAX 3.3 cm 4.2 - 5.9 / 3.9 - 5.3 cm LV Systolic Diameter PLAX 2.6 cm LV Fractional Shortening PLAX 21.6 % IVS Diastolic Thickness 1.9 cm 0.6 - 1.0 / 0.6 - 0.9 cm LVPW Diastolic Thickness 1.4 cm 0.6 - 1.0 / 0.6 - 0.9 cm RV Internal Dim ED PLAX 2.9 cm Aortic Root Diameter 3.0 cm LA Systolic Diameter LX 5.0 cm 3.0 - 4.0 / 2.7 - 3.8 cm DOPPLER TR Peak Velocity 284.0 cm/s TR Peak Gradient 32.3 mmHg FINDINGS Left Ventricle Mild - moderate concentric left ventricular hypertrophy with diastolic dysfunction. Left ventricular ejection fraction is estimated at 60 %. The mid to distal anterior septum appears akinetic. The apex may also be akinetic. The posterior wall and lateral wall appears to move normally throughout. The anterior and inferior wall are suboptimally visualized in an off axis II chamber apical view. In the parasternal short axis view, all of the alejandra are moving normally in the mid segment. There is grade 1/4 diastolic dysfunction consistent with impaired relaxation. Right Ventricle Normal right ventricular size. Right Atrium Normal right atrial size. Left Atrium Moderately increased left atrial diameter. Mitral Valve Mild mitral valve sclerosis. Mild mitral valve regurgitation. Aortic Valve Mild aortic valve sclerosis without stenosis. Mild aortic valve regurgitation. Tricuspid Valve Morphologically normal tricuspid valve. [id number] tricuspid valve regurgitation. Tricuspid regurgitation velocities suggest a PAP of 32.3 mmHg + RAP. Pulmonic Valve Pulmonic valve not well visualized. Trace- mild pulmonary valve regurgitation. Pericardium No pericardial effusion. Aorta Normal size aortic root and proximal ascending aorta. Alice Stark MD (Electronically Signed) Final Date: 12 Nov 2016 19:28
[2016-11-12] MEDS: ATORVASTATIN 40 MG TABLET PO SCH (20:48)
[2016-11-13 06:47] LABS: Basophils % 0.5 % (0.0-0.8); Eosinophils # 0.6 10*3/uL (0.0-0.87); Eosinophils % 7.9 % (0.00-10.9); Hemoglobin 12.6 GM/DL (14.0-18.0); Immature Granulocytes % 0.5 %; Immature Granulocytes Absolute 0.04 #; Lymphocytes # 1.5 10*3/uL (1.4-4.0); Lymphocytes % 19.3 % (21.2-54.2); Mean Corpuscular HGB Conc 34.1 GM/DL (32-36); Mean Corpuscular Hemoglobin 31 PG (27-34); Mean Corpuscular Volume 91.1 FL (87-102); Mean Platelet Volume 9.7 FL (9.6-12.0); Monocytes # 0.8 10*3/uL (0.11-0.8); Monocytes % 10.6 % (1.7-12.7); Neutrophils # 4.8 10*3/uL (1.4-7.4); Neutrophils % 61.2 % (38.7-73.9); Platelet Count 140 T/CUMM (130-400); Red Blood Count 4.06 MC/CUMM (3.8-5.5); Red Cell Distribution Width 12.9 % (9.3-17.3); White Blood Count 7.8 T/CUMM (4-12)
[2016-11-13 07:33] LABS: Osmolality,Calculated 283.3 MOS/KG (273-304); Potassium 4.1 MMOL/L (3.5-5.1)
[2016-11-13] MEDS ORDERED: LISINOPRIL 5 MG TABLET PO SCH (08:41)
[2016-11-13] MEDS ORDERED: AMIODARONE 200 MG TABLET PO SCH (09:00)
[2016-11-13] MEDS: METOPROLOL TARTRATE 25 MG TABLET PO SCH (09:33)
[2016-11-13] MEDS: TICAGRELOR 90 MG TABLET PO SCH ×2 (09:33→18:07)
[2016-11-13] MEDS: PANTOPRAZOLE 40 MG TABLET PO SCH (09:33)
[2016-11-13] MEDS: ASPIRIN EC 81 MG TABLET PO SCH (09:33)
[2016-11-13] MEDS: ENOXAPARIN 40 MG/0.4 ML SYRINGE SUBCUT SCH (09:34)
--- NOTE | 2016-11-13 16:54 | Discharge Summary ---
<Jennifer Lehman - Last Filed: 11/13/16 16:39> Hospital Course - Hospital Course Hospital Course: Mr. Whitfield is a 81-year-old male with a history of coronary artery bypass grafting in 1995, hypertension, hyperlipidemia, history of colon cancer in remission. He was brought to the hospital on 11/10/2016 as an activated STEMI from [facility] [address]. He was taken directly to [facility] where he underwent left heart catheterization with Dr. Stark. He was found to have severe three-vessel coronary artery disease including circumflex artery percent occluded at the ostium, diffuse disease of the LAD with 100% occlusion in the midsegment, proximal OM 95% stenosis. He received a successful PCI of the proximal OM and failed attempt PCI to the circumflex and LAD arteries. He was observed overnight in the ICU and subsequently transferred up to the telemetry unit. On 11/11/2016, Mr. Whitfield went into atrial fibrillation with rapid ventricular response. He was placed on IV amiodarone and subsequently converted to normal sinus rhythm. He was transitioned to p.o. amiodarone today and has maintained normal sinus rhythm. He has had no further post catheterization complications. His right groin cath site is without bleeding, hematoma, or bruit. Femoral pulses 3+. There is very minimal ecchymosis to the site but no pain. Distal pulses are 2+ bilaterally. He is currently taking aspirin 81 mg orally daily, Brilinta 90mg orally twice daily. He is on a beta-liss and MATTIE inhibitor and his statin has been continued. His cardiac enzymes have trended down appropriately. His lab work has been stable. Overall the patient is doing well clinically. He has a history of bradycardia and since converting to normal sinus rhythm has remained bradycardic. We'll hold off on keeping him on amiodarone and continue his beta liss. We will monitor his rhythm and if he has repeated atrial fibrillation episodes we may need to consider anticoagulation. We will discharge him with a 30 day event monitor to further evaluate this. He was borderline hypotensive the morning of discharge so we have decreased his mattei inhibitor dose. At this time, he has met discharge criteria and is anxious to go home. The patient did have atrial fibrillation transiently which converted to sinus rhythm. The chronicity of this is unknown, the patient is asymptomatic. He did recently have an event that could have represented a TIA. We are going to put him on a 30 day event monitor to try to determine the frequency of his atrial fibrillation. If this recurs, we may need to consider anticoagulation or rhythm controlling agents as indicated. The patient is very anxious to be discharged home today. - Time spent with patient Time with patient DS: Less than 30 minutes Diagnosis - Discharge Diagnosis (1) STEMI (ST elevation myocardial infarction) Status: Resolved (2) Coronary artery disease Status: Chronic (3) S/P CABG (coronary artery bypass graft) Status: Chronic (4) Hyperlipidemia Status: Chronic (5) Hypertension Status: Chronic (6) Ischemic cardiomyopathy Status: Acute (7) Constipation Status: Acute (8) Atrial fibrillation with rapid ventricular response Status: Resolved Specialty Discharge - Follow Up or Referrals Follow up with: Don Cárdenas MD [Physician] - 2 Weeks (Follow up with Dr. Cárdenas in 1-2 weeks with CBC, BMP w/ Mg and EKG. The patient needs an event monitor upon discharge. If one is unavailable in the hospital, he may pick this up from [facility] or they can mail it to him. ) Discharge Plan - Discharge Data Disposition: Disch To Home/Self Care Condition at Discharge: Stable Discharge Diet: heart healthy Activity: no lifting (over 5# x1 week. ) Hygiene: may shower (Do not submerge cath site beneath water. ) Weight Bearing at Discharge: full weight bearing Driving: no restrictions Contact your physician if you experience:: fever over 101, Difficulty voiding, Redness or swelling, Nausea/Vomiting, Shortness of breath, Bleeding, pain uncontrolled by pain medications - Discharge Medications New Atorvastatin [Lipitor] 80 mg PO BEDTIME #30 tablet Lisinopril [Prinivil] 2.5 mg PO DAILY #30 tablet Metoprolol Tartrate Tab [Lopressor Tab] 12.5 mg PO BID #60 tablet Aspirin EC Tab 81 mg PO DAILY tablet Ticagrelor [Brilinta] 90 mg PO BID #60 tablet Discontinued Simvastatin [Simvastatin] 40 mg PO QPM Lisinopril/Hctz 20-12.5 [Prinzide 20-12.5] 1 tablet PO DAILY NIFEdipine XL TAB [Procardia Xl] 30 mg PO DAILY Aspirin EC Tab 325 mg PO QAM Clopidogrel [Plavix] 75 mg PO DAILY - Follow Up or Referral Follow Up: Don Cárdenas MD [Physician] - 2 Weeks (Follow up with Dr. Cárdenas in 1-2 weeks with CBC, BMP w/ Mg and EKG. The patient needs an event monitor upon discharge. If one is unavailable in the hospital, he may pick this up from [facility] or they can mail it to him. ) - Forms/Instructions Instructions: Myocardial Infarction (GEN), Left Heart Catheterization (DC), Heart Healthy Diet (GEN), Coronary Intravascular Stent Placement (DC) Exam - Constitutional Vitals: Period Temp Pulse Resp BP Sys/Green Pulse Ox Last 24 Hr 97.2 F-99.1 F 52-58 18-20 91-137/41-70 92-98 Exam: General: [Appears well with no apparent distress.] [Pleasant and cooperative. ] [Appears comfortable.] HEENT: [PERRL, normocephalic, atraumatic. Mucous membranes moist. No jaundice noted. Conjunctiva moist and clear, sclerae anicteric] Neck: No JVD/HJR, no thyromegaly or lymphadenopathy noted. No carotid bruit appreciated Cardiac: [Regular rate and rhythm.] [No obvious murmur, rub or gallop.] Lungs: [Clear to auscultation without accessory muscle use to assist the respiratory pattern.] Not requiring oxygen. Abdomen: Soft, bowel sounds normoactive. Nontender and nondistended. No abdominal bruit or thrill noted. No masses noted. Musculoskeletal: No fluid collection. Decreased range of motion is noted. Extremities: Right groin soft. Dressing dry and intact. No obvious bruising or hematoma noted. No clubbing, cyanosis noted. [ No edema noted.] Upper extremity pulses 2+. Lower extremity pulses 2+. Capillary refill less than 3 seconds. Skin: No unusual lesions or rashes. No skin breakdown appreciated. Neuro: Awake, alert and oriented 3. Moves all extremities well without hemiparesis or paralysis. No essential tremor is appreciated. Discharge Results Procedures and tests throughout hospitalization: Left heart catheterization 11/10/16: Impression: 1. Severe three-vessel coronary artery disease. A. Circumflex artery 100% occluded at its ostium (barely visualized through distal collateralization). B. Diffuse disease of the LAD with 100% occlusion in the mid segment distal to the EVANS graft insertion. C. Proximal obtuse marginal artery 95% stenosis. D. Moderate residual Disease of the right coronary artery. E. Patent EVANS to LAD. F. Patent SVG to first diagonal artery. G. Patent SVG to RCA. 2. Right dominant coronary arteries. 3. Ejection fraction 30% with akinesis of the apex and adjacent distal anterior and inferior alejandra. 4. Angiographically normal right iliac artery without evidence of vascular complications. 5. Successful PCI of the proximal obtuse marginal artery as described above. 6. Failed attempted PCI to the circumflex and LAD arteries as described above. Plan: 1. DAPT > 12 months. 2. Consideration of defibrillator placement. Labs on day of discharge: Labs from last 24 hours 11/13/16 11/13/16 06:59 04:00 WBC 7.8 RBC 4.06 Hgb 12.6 L Hct 37.0 L MCV 91.1 MCH 31 MCHC 34.1 RDW 12.9 Plt Count 140 MPV 9.7 Neut % (Auto) 61.2 Lymph % (Auto) 19.3 L [place] % (Auto) 10.6 Eos % (Auto) 7.9 Baso % (Auto) 0.5 Neut # (Auto) 4.8 Lymph # (Auto) 1.5 [place] # (Auto) 0.8 Eos # (Auto) 0.6 Baso # (Auto) 0.0 Immature Gran % 0.5 Nucleated RBC % 0.0 Immature Gran # 0.04 Nucleated RBCs # 0.00 Sodium 141 Potassium 4.1 Chloride 106 Carbon Dioxide 28 Anion Gap 11.1 BUN 18 Creatinine 1.00 GFR Calculation 82 BUN/Creatinine Ratio 18.00 Glucose 110 H Calculated Osmolality 283.3 Calcium 8.0 L DS: Provider Date of admission: 11/10/16 14:32 Primary care physician: Hugh Poe MD Attending physician on admission: Alice Stark, Consults: 11/10/16 14:33 Consult to Cardiac Rehabilitation [CONS] Routine Reason for Cardiac Rehabilitation: Home Exercise Program/Gar[place] Discharging clinician: CAITLYN Rea- Expected date of discharge: 11/13/16 <Alice Stark - Last Filed: 11/13/16 20:11> Diagnosis - Discharge Diagnosis (1) Acute lateral myocardial infarction Status: Acute (2) Coronary artery disease Status: Chronic (3) Hypertension Status: Chronic (4) Hyperlipidemia Status: Chronic
[2016-11-13 17:15] VITALS: BP 137/70
== END 2016-11-13 18:13 | disposition home or self-care (01) | DRG 247 ==
LOC: N.CL 12:13 → N.ICU 14:32 → N.TELES 11-11 13:07
PROVIDERS: ADMIT Internal Medicine Cardiovascular Disease; ATTEND Internal Medicine Cardiovascular Disease